=== PATIENT | female | born 1980 | race Asian ===

== ENCOUNTER 2020-05-31 18:43 | Emergency (ER) | payer OTHER ==
[~2020-05-31] VITALS: Ht 162.6 cm; Wt 103.0 kg
[2020-05-31 20:53] VITALS: BP 143/86; TEMP 98.3
== END 2020-05-31 20:52 | disposition home or self-care (01) ==
LOC: ED 18:43
DX: S20.212A Contusion of left front wall of thorax, initial encounter (principal); S20.211A Contusion of right front wall of thorax, initial encounter; S30.1XXA Contusion of abdominal wall, initial encounter; Z33.1 Pregnant state, incidental; W22.8XXA Striking against or struck by other objects, initial encounter; Y92.512 Supermarket, store or market as the place of occurrence of the external cause
CPT/HCPCS: 81025; 99283

== ENCOUNTER 2020-08-08 15:44 | Emergency (ER) | payer BC ==
[~2020-08-08] VITALS: Ht 162.6 cm; Wt 103.0 kg
[2020-08-08] MEDS ORDERED: FERROUS SULF324 MG PO (18:09)
[2020-08-08 21:57] VITALS: BP 140/77; TEMP 99.2
== END 2020-08-08 21:57 | disposition home or self-care (01) ==
LOC: ED 15:44
DX: S49.82XA Other specified injuries of left shoulder and upper arm, initial encounter (principal); Z3A.18 18 weeks gestation of pregnancy; X50.3XXA Overexertion from repetitive movements, initial encounter; Y92.89 Other specified places as the place of occurrence of the external cause
CPT/HCPCS: 99282